=== PATIENT | male | born 1935 | race Caucasian/White ===

== ENCOUNTER → 2017-05-25 | Outpatient (CLI) | payer MEDICARE ==
--- NOTE | 2017-05-25 15:46 | US ---
EXAMINATION TYPE: US kidneys/renal and bladder DATE OF EXAM: 05/25/2017 COMPARISON: US CLINICAL HISTORY: M10.39 GOUT,N183 CHR KIDNEY DISEASE STAGE 3. EXAM MEASUREMENTS: Right Kidney: 9.1 x 4.9 x 5.9 cm Left Kidney: 9.8 x 5.8 x 5.3 cm Right Kidney: No hydronephrosis or masses seen Left Kidney: 1.6 x 1.6 x 1.6 cm anechoic focus with imperceptible wall and increased through transmis hafsa at the exophytic aspect of the left kidney Bladder: wnl Bilateral Jets seen: Yes There is no evidence for hydronephrosis at this point in time. No nephrolithiasis is seen. No paula s are identified. The urinary bladder is anechoic. Bilateral ureteral jets are seen. Cortical medullary differentiation is maintained. Cortical thinning is noted however. Cortical echote xture is somewhat increased. IMPRESSION: Findings compatible with medical renal disease. Simple cyst left kidney
== END | disposition home or self-care (01) ==
LOC: RADUSWWP 13:07
PROVIDERS: ATTEND Family Medicine
DX: N28.1 Cyst of kidney, acquired (principal); N18.3 Chronic kidney disease, stage 3 (moderate); M10.39 Gout due to renal impairment, multiple sites
CPT/HCPCS: 76770

== ENCOUNTER 2018-03-01 15:55 | Emergency (ER) | payer MEDICARE ==
--- NOTE | 2018-03-01 16:51 | ED ---
General Adult HPI - General Chief complaint: Chest Pain Stated complaint: chest tightness Time Seen by Provider: 03/01/18 16:17 Source: patient, family, RN notes reviewed, old records reviewed Mode of arrival: wheelchair Limitations: no limitations - History of Present Illness Initial comments: 82-year-old male presents for evaluation of chest pain. Patient had an episode of substernal chest tightness which began approximately 4 hours prior to arrival. This was nonexertional, he was eating his lunch. Denies sensation of food being caught in his throat. Denies dyspnea. Denies cough. Denies radiating pain. Patient has no known history of coronary artery disease but does have history of chronic kidney disease, and peripheral vascular disease. Denies cough. Denies fever. Denies chest pain at the time my evaluation. - Related Data Home Medications Medication Instructions Recorded Confirmed Allopurinol [Zyloprim] 100 mg PO DAILY 02/20/18 03/01/18 Atorvastatin Calcium [Lipitor] 40 mg PO DAILY 02/20/18 03/01/18 Calcitriol 0.25 mcg PO TID 02/20/18 03/01/18 Clopidogrel [Plavix] 75 mg PO DAILY 02/20/18 03/01/18 Colchicine 0.6 mg PO DAILY 02/20/18 03/01/18 Furosemide [Lasix] 20 mg PO DAILY 02/20/18 03/01/18 Lisinopril [Zestril] 10 mg PO BID 02/20/18 03/01/18 Vit A/Vit C/Vit E/Zinc/Copper 1 cap PO DAILY 02/20/18 03/01/18 [ICAPS SOFTGEL] Allergies Allergy/AdvReac Type Severity Reaction Status Date / Time Iodine and Iodide Containing AdvReac Nausea & Verified 03/01/18 16:27 Produc Vomiting shellfish derived [Shellfish] AdvReac Nausea & Verified 03/01/18 16:27 Vomiting Review of Systems ROS Statement: Those systems with pertinent positive or pertinent negative responses have been documented in the HPI. ROS Other: All systems not noted in ROS Statement are negative. Past Medical History Past Medical History: Hyperlipidemia, Hypertension Additional Past Medical History / Comment(s): "kidney problems", gout History of Any Multi-Drug Resistant Organisms: None Reported Past Surgical History: Tonsillectomy Past Psychological History: No Psychological Hx Reported Smoking Status: Former smoker Past Alcohol Use History: None Reported Past Drug Use History: None Reported General Exam Limitations: no limitations General appearance: alert, in no apparent distress Head exam: Present: atraumatic, normocephalic Eye exam: Present: normal appearance, PERRL ENT exam: Present: normal exam Neck exam: Present: normal inspection. Absent: tenderness, meningismus Respiratory exam: Present: normal lung sounds bilaterally. Absent: respiratory distress, wheezes Cardiovascular Exam: Present: regular rate, normal rhythm GI/Abdominal exam: Present: soft. Absent: distended, tenderness, guarding Extremities exam: Present: normal capillary refill, pedal edema Neurological exam: Present: alert, oriented X3, CN II-XII intact. Absent: motor sensory deficit Psychiatric exam: Present: normal affect, normal mood Skin exam: Present: warm, dry, intact. Absent: cyanosis, diaphoretic Course Vital Signs 03/01/18 16:03 Temperature 98.1 F Pulse Rate 74 Respiratory 24 Rate Blood Pressure 179/75 O2 Sat by Pulse 97 Oximetry - Reevaluation(s) Reevaluation #1: 03/01/18 18:22 Patient remains chest pain-free while in the emergency department. EKG Findings - EKG Comments: EKG Findings:: EKG: Normal sinus rhythm, rate of 67, VA interval 180, QRS duration 86, QTC 426, no ST segment changes. Medical Decision Making - Medical Decision Making 82-year-old male history of peripheral vascular disease presents for evaluation of chest pain. Pain resolved prior to arrival. Patient was substernal nonradiating. Workup in the emergency department reveals white blood cell count 3.7, hemoglobin is 10.5, creatinine 1.14 which is improved from previous. Troponin is negative. BNP is normal at 306. Chest x-ray shows no focal pneumonia, there is improved atelectasis. No pneumothorax. Patient remains chest pain-free while in the emergency department. He has significant risk factors will be kept in observation for serial cardiac enzymes, telemetry, and cardiology consultation. - Lab Data Result diagrams: 03/01/18 16:57 03/01/18 16:57 Lab Results 03/01/18 03/01/18 03/01/18 Range/Units 16:57 16:57 16:57 WBC 3.7 L (3.8-10.6) k/uL RBC 3.57 L (4.30-5.90) m/uL Hgb 10.5 L (13.0-17.5) gm/dL Hct 31.5 L (39.0-53.0) % MCV 88.1 (80.0-100.0) fL MCH 29.4 (25.0-35.0) pg MCHC 33.3 (31.0-37.0) g/dL RDW 14.5 (11.5-15.5) % Plt Count 144 L (150-450) k/uL Neutrophils % 58 % Lymphocytes % 27 % Monocytes % 7 % Eosinophils % 6 % Basophils % 1 % Neutrophils # 2.1 (1.3-7.7) k/uL Lymphocytes # 1.0 (1.0-4.8) k/uL Monocytes # 0.2 (0-1.0) k/uL Eosinophils # 0.2 (0-0.7) k/uL Basophils # 0.0 (0-0.2) k/uL PT (9.0-12.0) sec INR (<1.2) APTT (22.0-30.0) sec Sodium 141 (137-145) mmol/L Potassium 4.1 (3.5-5.1) mmol/L Chloride 112 H (98-107) mmol/L Carbon Dioxide 20 L (22-30) mmol/L Anion Gap 9 mmol/L BUN 30 H (9-20) mg/dL Creatinine 1.41 H (0.66-1.25) mg/dL Est GFR (CKD-EPI)AfAm 54 (>60 ml/min/1.73 sqM) Est GFR (CKD-EPI)NonAf 47 (>60 ml/min/1.73 sqM) Glucose 95 (74-99) mg/dL Calcium 8.5 (8.4-10.2) mg/dL Magnesium 1.5 L (1.6-2.3) mg/dL Total Bilirubin 0.4 (0.2-1.3) mg/dL AST 24 (17-59) U/L ALT 31 (21-72) U/L Alkaline Phosphatase 72 (38-126) U/L Total Creatine Kinase 124 (55-170) U/L CK-MB (CK-2) 3.6 H (0.0-2.4) ng/mL CK-MB (CK-2) Rel Index 2.9 Troponin I 0.013 (0.000-0.034) ng/mL NT-Pro-B Natriuret Pep pg/mL Total Protein 6.0 L (6.3-8.2) g/dL Albumin 3.5 (3.5-5.0) g/dL 03/01/18 03/01/18 Range/Units 16:57 16:57 WBC (3.8-10.6) k/uL RBC (4.30-5.90) m/uL Hgb (13.0-17.5) gm/dL Hct (39.0-53.0) % MCV (80.0-100.0) fL MCH (25.0-35.0) pg MCHC (31.0-37.0) g/dL RDW (11.5-15.5) % Plt Count (150-450) k/uL Neutrophils % % Lymphocytes % % Monocytes % % Eosinophils % % Basophils % % Neutrophils # (1.3-7.7) k/uL Lymphocytes # (1.0-4.8) k/uL Monocytes # (0-1.0) k/uL Eosinophils # (0-0.7) k/uL Basophils # (0-0.2) k/uL PT 10.3 (9.0-12.0) sec INR 1.1 (<1.2) APTT 25.2 (22.0-30.0) sec Sodium (137-145) mmol/L Potassium (3.5-5.1) mmol/L Chloride (98-107) mmol/L Carbon Dioxide (22-30) mmol/L Anion Gap mmol/L BUN (9-20) mg/dL Creatinine (0.66-1.25) mg/dL Est GFR (CKD-EPI)AfAm (>60 ml/min/1.73 sqM) Est GFR (CKD-EPI)NonAf (>60 ml/min/1.73 sqM) Glucose (74-99) mg/dL Calcium (8.4-10.2) mg/dL Magnesium (1.6-2.3) mg/dL Total Bilirubin (0.2-1.3) mg/dL AST (17-59) U/L ALT (21-72) U/L Alkaline Phosphatase (38-126) U/L Total Creatine Kinase (55-170) U/L CK-MB (CK-2) (0.0-2.4) ng/mL CK-MB (CK-2) Rel Index Troponin I (0.000-0.034) ng/mL NT-Pro-B Natriuret Pep 306 pg/mL Total Protein (6.3-8.2) g/dL Albumin (3.5-5.0) g/dL Disposition Clinical Impression: Chest pain Disposition: HOME SELF-CARE Condition: Good Instructions: Chest Pain (ED) Is patient prescribed a controlled substance at d/c from ED?: No Referrals: Flex Fernandez DO [Primary Care Provider] - 1-2 days Decision to Admit Reason: Admit from EC Decision Date: 03/01/18 Decision Time: 18:23
--- NOTE | 2018-03-01 17:16 | XR ---
EXAMINATION TYPE: XR chest 2V DATE OF EXAM: 03/01/2018 COMPARISON: Chest x-ray February 20, 2018. HISTORY: Chest pain. TECHNIQUE: Frontal and lateral views of the chest are obtained. FINDINGS: There is some residual linear opacity left lung base improved from prior. There is no new focal air space opacity, pleural effusion, or pneumothorax seen. The cardiac silhouette size is stab le and upper limits of normal with atherosclerotic thoracic aorta. The osseous structures are are s omewhat demineralized. IMPRESSION: Resolving left basilar atelectasis and/or infiltrate. No new infiltrate is seen.
[2018-03-01 17:19] LABS: Basophils % (A) 1 %; Eosinophils # (A) 0.2 k/uL (0-0.7); Eosinophils % (A) 6 %; HCT 31.5 % (39.0-53.0); HGB 10.5 gm/dL (13.0-17.5); Lymphocytes % (A) 27 %; MCH 29.4 pg (25.0-35.0); MCHC 33.3 g/dL (31.0-37.0); MCV 88.1 fL (80.0-100.0); Mean Platelet Volume 7.7; Monocytes # (A) 0.2 k/uL (0-1.0); Monocytes % (A) 7 %; Neutrophils # (A) 2.1 k/uL (1.3-7.7); Neutrophils % (A) 58 %; Platelet Count 144 k/uL (150-450); RBC 3.57 m/uL (4.30-5.90); RDW 14.5 % (11.5-15.5); WBC 3.7 k/uL (3.8-10.6)
[2018-03-01 17:30] LABS: INR 1.1 (<1.2); Partial Thromboplastin Time 25.2 sec (22.0-30.0); Prothrombin Time 10.3 sec (9.0-12.0)
[2018-03-01 17:31] LABS: Albumin 3.5 g/dL (3.5-5.0); Calcium 8.5 mg/dL (8.4-10.2); Magnesium 1.5 mg/dL (1.6-2.3); Potassium 4.1 mmol/L (3.5-5.1); Total Bilirubin 0.4 mg/dL (0.2-1.3)
[2018-03-01 17:47] LABS: Creatine Kinase MB 3.6 ng/mL (0.0-2.4); Troponin I 0.013 ng/mL (0.000-0.034)
[2018-03-01] MEDS ORDERED: ASPIRIN 325 MG TAB PO STA (18:19)
[2018-03-01] MEDS ORDERED: NALOXONE 0.4 MG/ML 1 ML VIAL IV PRN (18:20)
[2018-03-01 19:34] VITALS: BP 149/75; PULSE 77; RESP 18; TEMP 97.7
[2018-03-01] MEDS ORDERED: LISINOPRIL 10 MG TAB PO SCH (21:00)
[2018-03-02] MEDS ORDERED: FUROSEMIDE 20 MG TAB PO SCH (09:00)
[2018-03-02] MEDS ORDERED: COLCHICINE 0.6 MG EACH PO SCH (09:00)
[2018-03-02] MEDS ORDERED: CLOPIDOGREL 75 MG TAB PO SCH (09:00)
[2018-03-02] MEDS ORDERED: ALLOPURINOL 100 MG TAB PO SCH (09:00)
[2018-03-02] MEDS ORDERED: ATORVASTATIN 40 MG TAB PO SCH (09:00)
== END 2018-03-01 19:32 | disposition left against medical advice (07) ==
LOC: EC 15:55 → UNDOADMOB 18:20 → 1SOBS 18:20 → EC 19:32
DX: R07.89 Other chest pain (principal); J98.11 Atelectasis; I73.9 Peripheral vascular disease, unspecified; I12.9 Hypertensive chronic kidney disease with stage 1 through stage 4 chronic kidney disease, or unspecified chronic kidney disease; N18.9 Chronic kidney disease, unspecified; E78.5 Hyperlipidemia, unspecified; Z79.02 Long term (current) use of antithrombotics/antiplatelets; Z79.899 Other long term (current) drug therapy; Z91.048 Other nonmedicinal substance allergy status; Z91.013 Allergy to seafood; Z87.891 Personal history of nicotine dependence
CPT/HCPCS: 36415; 71046; 80053; 82550; 82553; 83735; 83880; 84484; 85025; 85610; 85730; 93005; 99285

== ENCOUNTER 2018-03-09 11:55 | Observation (INO) | payer MEDICARE ==
[2018-03-09] MEDS ORDERED: ASPIRIN 81 MG PO STA (12:14)
[2018-03-09] MEDS ORDERED: NITROGLYCERIN OINT 1 INCH/GM PACKET TOPICAL STA (12:15)
--- NOTE | 2018-03-09 12:18 | ED ---
General Adult HPI - General Chief complaint: Chest Pain Stated complaint: Chest Discomfort, SOB Time Seen by Provider: 03/09/18 12:00 Source: patient, family, RN notes reviewed Mode of arrival: wheelchair Limitations: no limitations - History of Present Illness Initial comments: This is an 82-year-old male with a past medical history significant for kidney problems peripheral edema and hypertension. Patient comes in the emergency department today the third time in the last couple of weeks he comes in today because he short of breath and having some chest pressure. Patient states onset was about an hour and a half ago. Patient denies any fever chills or cough. Patient states he has edema in his legs but that has not changed recently. Patient denies any palpitations. Patient denies any radiation of the chest pain. Patient denies any diaphoresis. Patient denies any abdominal pain patient denies nausea vomiting diarrhea. Patient states he doesn't know if the chest pain is related to exertion or not because he hasn't done anything. Patient denies lightheadedness dizziness or near syncopal episode. Patient denies headache patient denies numbness weakness. - Related Data Home Medications Medication Instructions Recorded Confirmed Allopurinol [Zyloprim] 100 mg PO DAILY 02/20/18 03/09/18 Atorvastatin Calcium [Lipitor] 40 mg PO DAILY 02/20/18 03/09/18 Calcitriol 0.25 mcg PO TID 02/20/18 03/09/18 Clopidogrel [Plavix] 75 mg PO DAILY 02/20/18 03/09/18 Colchicine 0.6 mg PO DAILY 02/20/18 03/09/18 Furosemide [Lasix] 20 mg PO DAILY 02/20/18 03/09/18 Lisinopril [Zestril] 10 mg PO BID 02/20/18 03/09/18 Aspirin 325 mg PO DAILY 03/09/18 03/09/18 Temazepam [Restoril] 30 mg PO HS PRN 03/09/18 03/09/18 Allergies Allergy/AdvReac Type Severity Reaction Status Date / Time Iodine and Iodide Containing AdvReac Nausea & Verified 03/09/18 13:31 Produc Vomiting shellfish derived [Shellfish] AdvReac Nausea & Verified 03/09/18 13:31 Vomiting Review of Systems ROS Statement: Those systems with pertinent positive or pertinent negative responses have been documented in the HPI. ROS Other: All systems not noted in ROS Statement are negative. Past Medical History Past Medical History: Hyperlipidemia, Hypertension Additional Past Medical History / Comment(s): "kidney problems", gout History of Any Multi-Drug Resistant Organisms: None Reported Past Surgical History: Tonsillectomy Past Psychological History: No Psychological Hx Reported Smoking Status: Former smoker Past Alcohol Use History: None Reported Past Drug Use History: None Reported General Exam - General Exam Comments Initial Comments: GENERAL: Patient is well-developed and well-nourished. Patient is nontoxic and well- hydrated and is in mild distress. ENT: Neck is soft and supple. No significant lymphadenopathy is noted. Oropharynx is clear. Moist mucous membranes. Neck has full range of motion without eliciting any pain. EYES: The sclera were anicteric and conjunctiva were pink and moist. Extraocular movements were intact and pupils were equal round and reactive to light. Eyelids were unremarkable. PULMONARY: Unlabored respirations. Good breath sounds bilaterally. No audible rales rhonchi or wheezing was noted. CARDIOVASCULAR: There is a regular rate and rhythm without any murmurs gallops or rubs. ABDOMEN: Soft and nontender with normal bowel sounds. No palpable organomegaly was noted. There is no palpable pulsatile mass. SKIN: Skin is clear with no lesions or rashes and otherwise unremarkable. NEUROLOGIC: Patient is alert and oriented x3. Cranial nerves II through XII are grossly intact. Motor and sensory are also intact. Normal speech, volume and content. Symmetrical smile. MUSCULOSKELETAL: Normal extremities with adequate strength and full range of motion. 2+ bilaterally LYMPHATICS: No significant lymphadenopathy is noted PSYCHIATRIC: Normal psychiatric evaluation. Normal interpersonal interactions appears functionally intact in deals appropriately with others. No signs of depression. No signs of anxiety. Limitations: no limitations Course Vital Signs 03/09/18 12:00 Temperature 97.9 F Pulse Rate 72 Respiratory 18 Rate Blood Pressure 134/68 O2 Sat by Pulse 96 Oximetry Medical Decision Making - Medical Decision Making EKG shows a normal sinus rhythm at 70 bpm UT interval is 184 QRS is 84 QT interval 414 QTC is 447. Patient's EKG shows no ST segment elevation or depression or T wave abnormalities are noted. Chest x-ray shows no acute abnormality. Patient's d-dimer was elevated but he could not get a CT of the chest wall PE so started on high-dose heparin ordered a VQ scan. I spoke with Dr. Whitehead he agreed to admit the patient admitted the patient. I continued high-dose heparin on the floor. - Lab Data Result diagrams: 03/09/18 12:32 03/09/18 12:32 Lab Results 03/09/18 03/09/18 03/09/18 Range/Units 12:32 12:32 12:32 WBC 3.3 L (3.8-10.6) k/uL RBC 3.62 L (4.30-5.90) m/uL Hgb 10.4 L (13.0-17.5) gm/dL Hct 31.8 L (39.0-53.0) % MCV 87.8 (80.0-100.0) fL MCH 28.8 (25.0-35.0) pg MCHC 32.9 (31.0-37.0) g/dL RDW 14.6 (11.5-15.5) % Plt Count 154 (150-450) k/uL Neutrophils % 66 % Lymphocytes % 21 % Monocytes % 7 % Eosinophils % 4 % Basophils % 1 % Neutrophils # 2.2 (1.3-7.7) k/uL Lymphocytes # 0.7 L (1.0-4.8) k/uL Monocytes # 0.2 (0-1.0) k/uL Eosinophils # 0.1 (0-0.7) k/uL Basophils # 0.0 (0-0.2) k/uL PT (9.0-12.0) sec INR (<1.2) APTT (22.0-30.0) sec D-Dimer (<0.60) mg/L FEU Sodium 142 (137-145) mmol/L Potassium 4.0 (3.5-5.1) mmol/L Chloride 108 H (98-107) mmol/L Carbon Dioxide 24 (22-30) mmol/L Anion Gap 10 mmol/L BUN 43 H (9-20) mg/dL Creatinine 1.75 H (0.66-1.25) mg/dL Est GFR (CKD-EPI)AfAm 42 (>60 ml/min/1.73 sqM) Est GFR (CKD-EPI)NonAf 36 (>60 ml/min/1.73 sqM) Glucose 105 H (74-99) mg/dL Calcium 8.2 L (8.4-10.2) mg/dL Magnesium 1.4 L (1.6-2.3) mg/dL Total Bilirubin 0.4 (0.2-1.3) mg/dL AST 22 (17-59) U/L ALT 25 (21-72) U/L Alkaline Phosphatase 64 (38-126) U/L Total Creatine Kinase 91 (55-170) U/L CK-MB (CK-2) 2.5 H (0.0-2.4) ng/mL CK-MB (CK-2) Rel Index 2.7 Troponin I <0.012 (0.000-0.034) ng/mL NT-Pro-B Natriuret Pep pg/mL Total Protein 5.8 L (6.3-8.2) g/dL Albumin 3.4 L (3.5-5.0) g/dL 03/09/18 03/09/18 Range/Units 12:32 12:32 WBC (3.8-10.6) k/uL RBC (4.30-5.90) m/uL Hgb (13.0-17.5) gm/dL Hct (39.0-53.0) % MCV (80.0-100.0) fL MCH (25.0-35.0) pg MCHC (31.0-37.0) g/dL RDW (11.5-15.5) % Plt Count (150-450) k/uL Neutrophils % % Lymphocytes % % Monocytes % % Eosinophils % % Basophils % % Neutrophils # (1.3-7.7) k/uL Lymphocytes # (1.0-4.8) k/uL Monocytes # (0-1.0) k/uL Eosinophils # (0-0.7) k/uL Basophils # (0-0.2) k/uL PT 10.4 (9.0-12.0) sec INR 1.1 (<1.2) APTT 24.9 (22.0-30.0) sec D-Dimer 3.78 H (<0.60) mg/L FEU Sodium (137-145) mmol/L Potassium (3.5-5.1) mmol/L Chloride (98-107) mmol/L Carbon Dioxide (22-30) mmol/L Anion Gap mmol/L BUN (9-20) mg/dL Creatinine (0.66-1.25) mg/dL Est GFR (CKD-EPI)AfAm (>60 ml/min/1.73 sqM) Est GFR (CKD-EPI)NonAf (>60 ml/min/1.73 sqM) Glucose (74-99) mg/dL Calcium (8.4-10.2) mg/dL Magnesium (1.6-2.3) mg/dL Total Bilirubin (0.2-1.3) mg/dL AST (17-59) U/L ALT (21-72) U/L Alkaline Phosphatase (38-126) U/L Total Creatine Kinase (55-170) U/L CK-MB (CK-2) (0.0-2.4) ng/mL CK-MB (CK-2) Rel Index Troponin I (0.000-0.034) ng/mL NT-Pro-B Natriuret Pep 86 pg/mL Total Protein (6.3-8.2) g/dL Albumin (3.5-5.0) g/dL Critical Care Time Critical Care Time: Yes Total Critical Care Time: 35 Disposition Clinical Impression: Elevated d-dimer, Unstable angina pectoris Disposition: ADMITTED IP TO THIS HOSP Referrals: Flex Fernandez DO [Primary Care Provider] - 1-2 days Time of Disposition: 13:45
[2018-03-09 12:55] LABS: Basophils % (A) 1 %; Eosinophils # (A) 0.1 k/uL (0-0.7); Eosinophils % (A) 4 %; HCT 31.8 % (39.0-53.0); HGB 10.4 gm/dL (13.0-17.5); Lymphocytes # (A) 0.7 k/uL (1.0-4.8); Lymphocytes % (A) 21 %; MCH 28.8 pg (25.0-35.0); MCHC 32.9 g/dL (31.0-37.0); MCV 87.8 fL (80.0-100.0); Mean Platelet Volume 7.8; Monocytes # (A) 0.2 k/uL (0-1.0); Monocytes % (A) 7 %; Neutrophils # (A) 2.2 k/uL (1.3-7.7); Neutrophils % (A) 66 %; Platelet Count 154 k/uL (150-450); RBC 3.62 m/uL (4.30-5.90); RDW 14.6 % (11.5-15.5); WBC 3.3 k/uL (3.8-10.6)
--- NOTE | 2018-03-09 13:01 | XR ---
EXAMINATION TYPE: XR chest 2V DATE OF EXAM: 03/09/2018 COMPARISON: 03/01/2018 HISTORY: Chest pain TECHNIQUE: Frontal and lateral views of the chest are obtained. FINDINGS: There is no focal air space opacity, pleural effusion, or pneumothorax seen. The cardiac silhouette size is within normal limits. Mid thoracic compression deformity is unchanged from the tosin or of 03/01/2018 and is mild. Flattening of the hemidiaphragms in the lateral view suggests underlyin g COPD. Minimal bibasilar subsegmental atelectasis is seen. IMPRESSION: Minimal bibasilar subsegmental atelectasis and flattening of the diaphragms on the later al image suggesting underlying COPD.
[2018-03-09 13:09] LABS: INR 1.1 (<1.2); Partial Thromboplastin Time 24.9 sec (22.0-30.0); Prothrombin Time 10.4 sec (9.0-12.0)
[2018-03-09 13:13] LABS: Albumin 3.4 g/dL (3.5-5.0); Calcium 8.2 mg/dL (8.4-10.2); Magnesium 1.4 mg/dL (1.6-2.3); Total Bilirubin 0.4 mg/dL (0.2-1.3); Total Protein 5.8 g/dL (6.3-8.2)
[2018-03-09 13:18] LABS: Creatine Kinase 91 U/L (55-170)
[2018-03-09 13:25] LABS: D-Dimer 3.78 mg/L FEU (<0.60)
[2018-03-09] MEDS ORDERED: HEPARIN SODIUM,PORCINE 10,000 UNIT/ML 1 ML VIAL IV ONE (13:27)
[2018-03-09 13:31] LABS: Creatine Kinase MB 2.5 ng/mL (0.0-2.4); Troponin I <0.012 ng/mL (0.000-0.034)
[2018-03-09] MEDS ORDERED: NITROGLYCERIN SL TABS 0.4 MG TAB SUBLINGUAL PRN (13:46)
[2018-03-09] MEDS: HEPARIN SOD,PORK IN 0.45% NACL 25,000 UNIT in 0.45% NACL 1 500ML.BAG IV SCH (14:19)
[2018-03-09] MEDS ORDERED: IPRATROPIUM-ALBUTEROL 3 ML NEB INHALATION PRN (17:16)
[2018-03-09 18:18] VITALS: BMI 28.0
[2018-03-09 19:14] LABS: Creatine Kinase 96 U/L (55-170)
[2018-03-09 19:27] LABS: Creatine Kinase MB 2.5 ng/mL (0.0-2.4); Troponin I <0.012 ng/mL (0.000-0.034)
[2018-03-09] MEDS: NITROGLYCERIN OINT 1 INCH/GM PACKET TOPICAL SCH ×2 (19:45→23:06)
[2018-03-09] MEDS: FUROSEMIDE 20 MG TAB PO SCH (19:47)
[2018-03-09] MEDS: SODIUM CHLORIDE 0.9% 1,000 ML IV SCH (19:48)
[2018-03-09] MEDS: IPRATROPIUM-ALBUTEROL 3 ML NEB INHALATION SCH ×2 (20:48→20:49)
--- NOTE | 2018-03-09 20:54 | HP ---
HISTORY AND PHYSICAL DATE OF SERVICE: 03/09/2018 CHIEF COMPLAINT: Shortness of breath. HISTORY OF PRESENT ILLNESS: This 82-year-old gentleman with a past medical history of multiple medical problems including hypertension, hyperlipidemia, history of kidney problems, history of gout, history of tonsillectomy, being followed by Dr. Fernandez in the outpatient setting, was complaining of shortness of breath. The patient apparently had 2 or 3 ER visits recently because of similar symptoms. The patient also had kidney problems and was sent to see a oil expeller operator at this time. The patient also had chest pressure also. The patient also complains of peripheral edema. The patient came to [facility] and was admitted for further evaluation and treatment. Creatinine is 1.75. D- dimer was elevated at 3.78. There is no history of fever, rigors. No history of headache, loss of consciousness, seizures at this time. PAST MEDICAL HISTORY: History of hypertension, hyperlipidemia, history of renal kidney stones, history of gout. MEDICATIONS: Home medications are: 1. Restoril 30 mg q.h.s. p.r.n. 2. Aspirin 320 mg daily. 3. Zestril 10 mg b.i.d. 4. Lasix 20 mg daily. 5. Colchicine 0.6 p.o. daily. 6. Plavix 75 mg p.o. daily. 7. Calcitriol 0.5 mcg p.o. t.i.d. 8. Lipitor 40 mg p.o. daily. 9. Seroquel 100 mg p.o. daily. ALLERGIES: IODINE AND SHELLFISH. FAMILY HISTORY: No history of heart disease or strokes in the family. SOCIAL HISTORY: Previous history of smoking. No history of current smoking, alcohol intake. REVIEW OF SYSTEMS: ENT: Diminished vision. Diminished hearing. Cardiovascular: As mentioned earlier. RESPIRATORY: As mentioned earlier. GI: No nausea or vomiting. no dysuria. CENTRAL NERVOUS SYSTEM: No numbness or weakness. ALLERGY/IMMUNOLOGY: No asthma or hayfever. MUSCULOSKELETAL: As mentioned earlier. HEMATOLOGY/ONCOLOGY: No history of anemia. ENDOCRINE: No history of diabetes or hypothyroidism. CONSTITUTIONAL: as mentioned earlier. DERMATOLOGY: Negative. Rheumatology: Gout. PSYCHIATRIC: As mentioned earlier. JOINTS: As mentioned earlier. PHYSICAL EXAMINATION: Alert and oriented x3. Pulse 58, blood pressure 140/78. Respiration 18, temperature 97.8. Pulse ox 100 percent on 2 L. HEENT: Conjunctivae normal. Oral mucosa moist. Neck is no jugular venous distention. No carotid bruit. No lymph node enlargement. Cardiovascular systems: S1, S2 muffled. Respiration: Breath sounds diminished in the bases. Scattered rhonchi. No crackles. ABDOMEN: Soft, nontender. No mass palpable. Legs: No edema. No swelling. Nervous system: Higher functions as mentioned earlier. Cranial nerves: 2 thru 12 grossly intact. Moves all 4 limbs. No focal motor or sensory deficits. Lymphatics: No lymph nodes palpable in the neck, axillae or groin. JOINTS: No active arthropathy. Skin: No ulcer, rash, bleeding. LAB: WBC 3.3, hemoglobin 10.4. D-dimer is 3.78. Creatinine is 1.75. ASSESSMENT: 1. Chest pain for evaluation, possible unstable angina. 2. Shortness of breath, rule out pulmonary embolism, possible chronic obstructive pulmonary disease exacerbation. 3. Leukopenia. 4. Anemia, normocytic anemia of chronic disease. 5. Elevated D-dimer. 6. Increased creatinine with chronic kidney disease stage III. 7. Hypomagnesemia. 8. History of hypertension. 9. History of hyperlipidemia. 10.History of nephrolithiasis. 11.History of gout. 12.Remote history of nicotine dependence. 13.FULL CODE. RECOMMENDATIONS AND DISCUSSION: In this 82-year-old gentleman who presented with multiple complex medical issues, we will monitor the patient closely. Continue the current medications, management and symptomatic treatment. We will initiate the patient on heparin. I would also recommend a V/Q scan. Symptomatic treatment. Cardiology, pulmonology consultation. Treat the patient empirically with bronchodilators and await the response. Will need further workup as an outpatient. The overall prognosis is extremely guarded because of multiple complex medical issues and discussed at length with the patient and the daughter at the bedside. Further recommendations to follow. A copy of dictation behind forwarded to Dr. Fernandez's who is the primary care physician. As mentioned earlier, D-dimer is elevated. I would also recommend a 2D echo with Doppler. MMODL / IJN: [id number] /
[2018-03-09] MEDS ORDERED: TEMAZEPAM 30 MG CAP PO PRN (21:00)
[2018-03-09] MEDS: LISINOPRIL 10 MG TAB PO SCH (21:24)
[2018-03-09 21:29] VITALS: RESP 17
[2018-03-09 21:48] LABS: Appearance,Urine Clear (Clear); Bilirubin,Urine Negative (Negative); Blood,Urine Negative (Negative); Color,Urine Light Yellow; Glucose,Urine (UA) Negative (Negative); Ketones,Urine Negative (Negative); Leukocyte Esterase,Urine Negative (Negative); Nitrite,Urine Negative (Negative); Protein,Urine Negative (Negative); Specific Gravity,Urine 1.009 (1.001-1.035); Urobilinogen,Urine <2.0 mg/dL (<2.0)
[2018-03-10 01:28] LABS: Creatine Kinase MB 2.2 ng/mL (0.0-2.4)
[2018-03-10 01:32] LABS: Troponin I 0.012 ng/mL (0.000-0.034)
[2018-03-10 03:23] VITALS: TEMP 97.9
[2018-03-10 03:44] LABS: Calcium 8.3 mg/dL (8.4-10.2); Potassium 3.6 mmol/L (3.5-5.1)
[2018-03-10 03:57] LABS: Basophils % (A) 0 %; Eosinophils # (A) 0.2 k/uL (0-0.7); Eosinophils % (A) 5 %; HCT 30.1 % (39.0-53.0); HGB 9.8 gm/dL (13.0-17.5); Lymphocytes % (A) 32 %; MCH 28.5 pg (25.0-35.0); MCHC 32.6 g/dL (31.0-37.0); MCV 87.5 fL (80.0-100.0); Mean Platelet Volume 7.5; Monocytes # (A) 0.2 k/uL (0-1.0); Monocytes % (A) 7 %; Neutrophils # (A) 1.6 k/uL (1.3-7.7); Neutrophils % (A) 54 %; Platelet Count 133 k/uL (150-450); RBC 3.44 m/uL (4.30-5.90); RDW 14.6 % (11.5-15.5)
[2018-03-10] MEDS: HEPARIN SOD,PORK IN 0.45% NACL 25,000 UNIT in 0.45% NACL 1 500ML.BAG IV SCH ×2 (06:37→10:35)
[2018-03-10] MEDS: NITROGLYCERIN OINT 1 INCH/GM PACKET TOPICAL SCH ×2 (06:38→12:41)
[2018-03-10] MEDS ORDERED: Magnesium Replacement Protocol 1 EACH MISC MISCELLANE PRN (06:39)
[2018-03-10] MEDS: IPRATROPIUM-ALBUTEROL 3 ML NEB INHALATION SCH ×2 (08:10→11:52)
--- NOTE | 2018-03-10 08:54 | P.CRDCN ---
History of Present Illness Consult date: 03/10/18 Requesting physician: Julian Whitehead Consult reason: shortness of breath Chief complaint: Shortness of breath, chest discomfort History of present illness: This is an 82-year-old gentleman with history of hypertension, hyperlipidemia, kidney problems, prior history of smoking, gout, who had 3 recent visits to the emergency room. On this occasion he again presents with symptoms of shortness of breath. According to the patient he states that the symptoms come on when he exerts himself, even carrying light loads into the house he gets short of breath. He also states that he gets a discomfort in his epigastric region which goes up into his chest. Once he sits down and rests for a while the symptoms do seem to subside. He does have some mild bilateral peripheral edema in his lower extremities. Patient states that all of this has come on within the past 3 weeks or so. His chest x-ray on admission showed minimal basilar subsegmental atelectasis and flattening of the diaphragm suggesting underlying COPD. EKG on arrival here shows a normal sinus rhythm with no acute changes noted. The pressure on arrival here 134/68 with a heart rate in the 70s, 96% on room air, temperature 97.9. White blood cell count 3.0 , hemoglobin 10.4 on admission, 9.8 this morning. Platelet count 133. D-dimer 3.78. On admission sodium 142, potassium 4.0, BUN 43, creatinine 1.7. Calcium 8.2, magnesium 1.4. Troponins negative 3. This morning's lap BUN is 38 and creatinine 1.5, magnesium 1.5. Total protein 5.8, albumin 3.4. Cholesterol 123 , LDL 73, triglycerides 49 and HDL 40 urinalysis was negative. Upon review of records back to 2013, it does appear that the patient runs a low white blood cell count. Hemoglobin in 2014 11.7. Creatinine has been as high as 2.3 over the past few years. At the time of my examination this morning, patient feels well, denies any shortness of breath and is not having any discomfort. Past Medical History Past Medical History: Hyperlipidemia, Hypertension Additional Past Medical History / Comment(s): "kidney problems", gout History of Any Multi-Drug Resistant Organisms: None Reported Past Surgical History: Tonsillectomy Past Anesthesia/Blood Transfusion Reactions: No Reported Reaction Past Psychological History: No Psychological Hx Reported Smoking Status: Former smoker Past Alcohol Use History: None Reported Past Drug Use History: None Reported Medications and Allergies Home Medications Medication Instructions Recorded Confirmed Type Allopurinol [Zyloprim] 100 mg PO DAILY 02/20/18 03/09/18 History Atorvastatin Calcium [Lipitor] 40 mg PO DAILY 02/20/18 03/09/18 History Calcitriol 0.25 mcg PO MOWEFR 02/20/18 03/09/18 History Clopidogrel [Plavix] 75 mg PO DAILY 02/20/18 03/09/18 History Colchicine 0.6 mg PO DAILY 02/20/18 03/09/18 History Furosemide [Lasix] 20 mg PO DAILY 02/20/18 03/09/18 History Lisinopril [Zestril] 10 mg PO BID 02/20/18 03/09/18 History Aspirin 325 mg PO DAILY 03/09/18 03/09/18 History Temazepam [Restoril] 30 mg PO HS PRN 03/09/18 03/09/18 History Allergies Allergy/AdvReac Type Severity Reaction Status Date / Time Iodine and Iodide Containing AdvReac Nausea & Verified 03/09/18 13:31 Produc Vomiting shellfish derived [Shellfish] AdvReac Nausea & Verified 03/09/18 13:31 Vomiting Physical Exam Vitals: Vital Signs Temp Pulse Pulse Resp BP BP Pulse Ox 03/10/18 03:25 70 17 03/10/18 03:22 97.9 F 70 17 102/55 93 L 03/09/18 23:09 75 17 03/09/18 23:06 75 17 101/55 95 03/09/18 20:57 86 03/09/18 20:51 86 03/09/18 20:00 98 F 65 17 128/63 95 03/09/18 16:00 97.9 F 86 16 180/86 98 03/09/18 15:59 97.8 F 58 L 18 146/78 100 03/09/18 14:20 61 18 146/88 99 03/09/18 12:00 97.9 F 72 18 134/68 96 Intake and Output 03/09/18 03/10/18 03/10/18 22:59 06:59 14:59 Intake Total 165.727 1430.168 Output Total 750 1000 Balance -376.805 15.168 Intake: IV 220 ns 220 Intake, IV Titration 173.195 195.168 Amount Heparin Sod,Pork in 0.45% 173.195 195.168 NaCl 25,000 unit In 0.45 % NaCl 1 500ml.bag @ 18 UNITS/KG/HR 31.02 mls/hr IV .Q16H8M [facility] Rx#: [id number] Oral 200 600 Output: Urine 750 1000 Other: Voiding Method Urinal Urinal Weight 86.183 kg 81.2 kg PHYSICAL EXAMINATION: GENERAL: 82-year-old gentleman in no acute distress at the time of my examination HEENT: Head is atraumatic, normocephalic. Pupils equal, round. Sclera anicteric. Conjunctiva are clear. Mucous membranes of the mouth are moist. Neck is supple. There is no elevated jugular venous pressure. No carotid bruit is heard. HEART EXAMINATION: Heart S1 and S2 systolic murmur is heard in the aortic valve area. CHEST EXAMINATION: Lungs are clear to auscultation and precussion. No chest wall tenderness is noted on palpation or with deep breathing. ABDOMEN: Soft, nontender. Bowel sounds are heard. No organomegaly noted. EXTREMITIES: 2+ peripheral pulses with trace evidence of peripheral edema and no calf tenderness noted. NEUROLOGIC patient is awake, alert and oriented 3 . . Results 03/10/18 03:03 03/10/18 03:03 Cardiac Enzymes 03/09/18 03/09/18 03/09/18 Range/Units 12:32 12:32 18:40 AST 22 (17-59) U/L CK-MB (CK-2) 2.5 H 2.5 H (0.0-2.4) ng/mL Troponin I <0.012 <0.012 (0.000-0.034) ng/mL 03/10/18 Range/Units 00:30 AST (17-59) U/L CK-MB (CK-2) 2.2 (0.0-2.4) ng/mL Troponin I 0.012 (0.000-0.034) ng/mL Coagulation 03/09/18 03/09/18 03/10/18 Range/Units 12:32 18:40 03:03 PT 10.4 (9.0-12.0) sec APTT 24.9 >200.0 H* 161.0 H* (22.0-30.0) sec Lipids 03/10/18 Range/Units 03:03 Triglycerides 49 (<150) mg/dL Cholesterol 123 (<200) mg/dL HDL Cholesterol 40 (40-60) mg/dL CBC 03/09/18 03/10/18 Range/Units 12:32 03:03 WBC 3.3 L 3.0 L (3.8-10.6) k/uL RBC 3.62 L 3.44 L (4.30-5.90) m/uL Hgb 10.4 L 9.8 L (13.0-17.5) gm/dL Hct 31.8 L 30.1 L (39.0-53.0) % Plt Count 154 133 L (150-450) k/uL Comprehensive Metabolic Panel 03/09/18 03/10/18 Range/Units 12:32 03:03 Sodium 142 141 (137-145) mmol/L Potassium 4.0 3.6 (3.5-5.1) mmol/L Chloride 108 H 109 H (98-107) mmol/L Carbon Dioxide 24 23 (22-30) mmol/L BUN 43 H 38 H (9-20) mg/dL Creatinine 1.75 H 1.59 H (0.66-1.25) mg/dL Glucose 105 H 95 (74-99) mg/dL Calcium 8.2 L 8.3 L (8.4-10.2) mg/dL AST 22 (17-59) U/L ALT 25 (21-72) U/L Alkaline Phosphatase 64 (38-126) U/L Total Protein 5.8 L (6.3-8.2) g/dL Albumin 3.4 L (3.5-5.0) g/dL Current Medications Generic Name Dose Route Start Last Admin Trade Name Freq PRN Reason Stop Dose Admin Albuterol/Ipratropium 3 ml 03/09/18 20:00 03/10/18 08:10 Duoneb 0.5 Mg-3 Mg/3 Ml Soln INHALATION Not Given RT-TID JUAN Albuterol/Ipratropium 3 ml 03/09/18 17:16 Duoneb 0.5 Mg-3 Mg/3 Ml Soln INHALATION RT-TID PRN Shortness Of Breath Or Wheezing Allopurinol 100 mg 03/10/18 09:00 Zyloprim PO DAILY [facility] Aspirin 325 mg 03/10/18 09:00 Aspirin PO DAILY [facility] Atorvastatin Calcium 40 mg 03/10/18 09:00 Lipitor PO DAILY [facility] Calcitriol 0.25 mcg 03/11/18 09:00 Rocaltrol PO MoWeFr [facility] Clopidogrel Bisulfate 75 mg 03/10/18 09:00 Plavix PO DAILY [facility] Colchicine 0.6 mg 03/10/18 09:00 Colcrys PO DAILY [facility] Furosemide 20 mg 03/09/18 17:30 03/09/18 19:47 Lasix PO 20 mg DAILY JUAN Administration Heparin Sodium/Sodium Chloride 500 mls @ 31.02 mls/hr 03/09/18 13:30 06:37 25,000 unit/ Sodium Chloride IV Not Given .Q16H8M [facility] Protocol 18 UNITS/KG/HR Sodium Chloride 1,000 mls @ 50 mls/hr 03/09/18 17:30 03/09/18 19:48 Saline 0.9% IV 50 mls/hr .Q20H JUAN Administration Magnesium Sulfate/Dextrose 1 100 mls @ 100 mls/hr 03/10/18 07:00 gm/ IV Solution IVPB 03/10/18 08:59 Q1H [facility] Lisinopril 10 mg 03/09/18 21:00 03/09/18 21:24 Zestril PO 10 mg BID UJAN Administration Miscellaneous Information 1 each 03/10/18 06:39 Magnesium Per Protocol MISCELLANE DAILY PRN Per Protocol Protocol Nitroglycerin 1 inch 03/09/18 18:00 03/10/18 06:38 Nitro-Bid Oint TOPICAL Not Given Q6HR [facility] Nitroglycerin 0.4 mg 03/09/18 13:46 Nitrostat SUBLINGUAL Q5M PRN Chest Pain Temazepam 30 mg 03/09/18 21:00 03/09/18 21:24 Restoril PO 30 mg HS PRN Administration Insomnia Intake and Output 03/09/18 03/10/18 03/10/18 22:59 06:59 14:59 Intake Total 955.126 0840.168 Output Total 750 1000 Balance -376.805 15.168 Intake: IV 220 ns 220 Intake, IV Titration 173.195 195.168 Amount Heparin Sod,Pork in 0.45% 173.195 195.168 NaCl 25,000 unit In 0.45 % NaCl 1 500ml.bag @ 18 UNITS/KG/HR 31.02 mls/hr IV .Q16H8M [facility] Rx#: [id number] Oral 200 600 Output: Urine 750 1000 Other: Voiding Method Urinal Urinal Weight 86.183 kg 81.2 kg 03/10/18 03:03 03/10/18 03:03 EKG Interpretations (text) EKG shows normal sinus rhythm with no acute changes. Assessment and Plan Plan: Assessment and plan #1 symptoms of exertional shortness of breath with intermittent epigastric and chest discomfort. Troponins are negative 3. EKG shows normal sinus rhythm with no acute changes. D-dimer was elevated, hence a lung perfusion scan was performed this morning which is yet pending. #2 hypertension #3 hyperlipidemia #4 acute on chronic kidney disease #5 gout #6 prior history of smoking #7 hypomagnesemia, being replaced with protocol #8 prior CVA Plan We'll request an echocardiogram with Doppler study be performed. Await results of VQ scan. Replace magnesium. Further recommendations will be based on these findings and patient's clinical course. DNP note has been reviewed, I agree with a documented findings and plan of care. Patient was seen and examined.
[2018-03-10] MEDS ORDERED: ATORVASTATIN 40 MG TAB PO SCH (09:00)
[2018-03-10] MEDS ORDERED: ALLOPURINOL 100 MG TAB PO SCH (09:00)
[2018-03-10] MEDS ORDERED: CLOPIDOGREL 75 MG TAB PO SCH (09:00)
[2018-03-10] MEDS ORDERED: ASPIRIN 325 MG TAB PO SCH (09:00)
[2018-03-10] MEDS ORDERED: COLCHICINE 0.6 MG EACH PO SCH (09:00)
--- NOTE | 2018-03-10 09:19 | NM ---
EXAMINATION TYPE: NM pul vent and perfuse DATE OF EXAM: 03/10/2018 COMPARISON: NONE HISTORY: Shortness of breath TECHNIQUE: Utilizing inhalation of 31.0 mCi Tc 99m DTPA aerosol and intravenous injection of 4.66 mC i of Tc 99m MAA, ventilation and perfusion images are acquired post injection in multiple projections . FINDINGS: Normal radiotracer distribution is noted in the lungs. There is no evidence of mismatched defects. IMPRESSION: Very low probability for pulmonary embolism.
[2018-03-10] MEDS: MAGNESIUM SULFATE-D5W PMX 1 GM in DEXTROSE/WATER 1 100ML.BAG IVPB SCH ×2 (10:34→11:00)
[2018-03-10] MEDS: FUROSEMIDE 20 MG TAB PO SCH (10:35)
[2018-03-10] MEDS: LISINOPRIL 10 MG TAB PO SCH (10:35)
[2018-03-10] MEDS: SODIUM CHLORIDE 0.9% 1,000 ML IV SCH (12:41)
[2018-03-10 14:52] VITALS: BP 167/75; PULSE 69
--- NOTE | 2018-03-10 20:52 | CONS ---
CONSULTATION DATE OF CONSULTATION: 03/10/2018 This is an 82-year-old male who apparently presented to the emergency room on March 09. He came with complaints of a knot in his chest. He is very adamant that it was not pain in the chest but rather a knot in his chest. I have mentioned pain a couple times any correct me very quickly. The patient states that he has been having this on and off for some time. He has had this maybe 3 times in the last couple weeks. The patient denies any shortness of breath to me. Denies any fever or chills. Denies any cough or phlegm production. There is no radiation of this sensation that he is having. Denies any palpitations or fluttering of the heart. Also denies any abdominal complaints including nausea, vomiting or diarrhea. The patient was evaluated in the emergency room and admitted with the idea that this could be cardiac in nature. The patient is not having a problem currently. States he is feeling back to normal. He states he would like to go home because he has too small puppies at home that he would like to take care of. He says he is going to sign out against medical advice if they do not discharge him from the hospital. Again, he is not having any issues at this time. I asked him specifically about shortness of breath and he denies it. The patient had a chest x-ray which suggests the possibility of underlying COPD. He also had a lung scan to rule out PE. It was done because his renal function was abnormal and it was very low probability. I do not suspect that he has had a pulmonary embolism based on his story or his lung scan. HOME MEDICATIONS: Include allopurinol, atorvastatin, calcitriol, Plavix, colchicine, Lasix, Zestril, aspirin, and Restoril. MEDICAL HISTORY: Hypertension, hyperlipidemia, gout and chronic kidney disease. SURGICAL HISTORY: Includes among other things a tonsillectomy. SOCIAL HISTORY: Positive for previous tobacco use. I asked him about trying to quantify his tobacco use, but he is really nonspecific in terms of how much he smoked and for how long. He did quit smoking maybe 10 years ago. He denies any alcohol or illicit drug use. FAMILY HISTORY: Noncontributory. REVIEW OF SYSTEMS: CONSTITUTIONAL: Negative. NEUROLOGIC: Negative. HEENT: Negative. CARDIOVASCULAR: Chest sensation which he describes as a knot in his chest, not pain. PULMONARY: Negative. GI/: Negative. RHEUMATOLOGIC/IMMUNOLOGIC: Negative. ENDOCRINOLOGIC/DERMATOLOGIC: Negative. Current vital signs are reviewed. Temperature 97.9, heart rate 67, respiratory 17, blood pressure 166/70, mean 102, room air saturation 97%. The patient looks very stable. HEENT: Examination is grossly unremarkable. Mucous membranes are moist. No oral lesions. Not requiring any supplemental oxygen. NECK: Supple. Full range of motion. No adenopathy or thyromegaly. Neck veins are flat. CARDIOVASCULAR: Examination reveals regular rhythm and rate. S1, S2 normal. No S3, S4, or murmur. LUNGS: Clear breath sounds. There is no wheezes, rhonchi, or crackles. Breath sounds are equal bilaterally. ABDOMEN: Soft, bowel sounds are heard. Extremities are intact. There is no cyanosis, clubbing, or edema. Skin without rash. Neurologic examination is brief but nonfocal. LAB DATA: Reviewed. White count 3, hemoglobin 9.8, hematocrit 30.1, platelet count 133,000. Sodium, potassium normal. Chloride 109, CO2 is 23, anion gap is normal. BUN and creatinine were 38 and 1.59. Cardiac enzymes were negative x2. Cholesterol was 123. UA was negative. Chest x-ray shows a possible underlying COPD. Lung scan was very low probability for pulmonary embolism. Cardiology also saw the patient and they were recommending an echocardiogram with Doppler study. ASSESSMENT: 1. Chest discomfort/knot as the patient describes it, not currently present, currently being evaluated by Cardiology. 2. Doubt pulmonary embolism based on the patient's history and the very low probability V/Q scan. 3. Possible underlying COPD from previous tobacco use. 4. History of hypertension. 5. History of hyperlipidemia. 6. History of kidney stones. 7. Chronic kidney disease. 8. History of gout. PLAN: The patient seems to be doing relatively well. He is adamant about being discharged today. He states that if they do not discharge him, he will sign out against medical advice. To me, what the patient is describing based on his history is that of esophageal spasm. It seems to occur a lot of times when he eats. Most recently he had a sub and he states that it seemed to occur then. It may be that he is eating his sub too quickly, he is not chewing his food properly or he taking to big a bite. It does seem to occur many times when he is eating or after he eats. Anyway, esophageal spasm may be the explanation for all of this. The patient, from the pulmonary standpoint is stable. He could be discharged. Additional recommendations and suggestions are forthcoming. I did offer my services to evaluate his lungs. He does have a history of tobacco use. He may have some underlying COPD. He will give it some thought. In the office, he would benefit from a complete pulmonary function test. He may or may not come back to see me. MMAKUAL / IJN: [id number] /
--- NOTE | 2018-03-10 22:40 | DS ---
DISCHARGE SUMMARY DATE OF SERVICE: 03/10/2018 FINAL DIAGNOSES: 1. Chest pain. Myocardial infarction ruled out. 2. Shortness of breath. Pulmonary ruled out possible bronchitis or chronic obstructive pulmonary disease. 3. Leukopenia. 4. Anemia, normocytic anemia of chronic disease. 5. Elevated D-dimer. 6. Increased creatinine with chronic kidney stage 3. 7. Hypomagnesemia. 8. Hypertension. 9. Hyperlipidemia. 10.History of nephrolithiasis. 11.History of gout. 12.Remote history of nicotine dependence. 13.FULL CODE. DISCHARGE DISPOSITION: The patient is being discharged in stable condition with guarded prognosis. Patient is extremely keen on going home. The patient will be discharged after clearance from cardiology. HISTORY OF PRESENT ILLNESS: This 82-year-old gentleman with a past medical history of multiple medical problems including chest pain, myocardial infarction . Cardiology recommended a stress test. The patient is not willing to stay at this time. The Cardiology recommended outpatient stress test. The patient is being discharged in stable condition with guarded prognosis. Vital signs stable. Cardiovascular: S1, S2. Abdomen is soft. Nervous system: No focal deficits. The patient is on bronchodilators, which improved the shortness of breath and the patient also had a V/Q scan, which is low probability. DISCHARGE ADVICE AND MEDICATIONS: 1. Discharge diet is cardiac diet. 2. Activity limited until followup. 3. Follow up with Dr. Fernandez in 1-2 days. 4. Follow with the [facility]pm solution architect as advised for outpatient stress. MEDICATIONS: 1. Zyloprim 100 mg. 2. Aspirin 325 mg daily. 3. Lipitor 40 mg daily. 4. Calcitriol 0.5 mg Sunday, Sunday, Sunday. 5. Plavix 75 mg. 6. Colchicine 0.6 daily. 7. Lasix 20 mg daily. 8. Zestril 10 mg p.o. b.i.d. 9. Restoril 30 mg q.h.s. 10.Albuterol 2 puffs q.i.d. and p.r.n. Follow up with Dr. Jett in 2 weeks. MMAKUAL / VENITAN: [id number] / MTDD
[2018-03-11] MEDS ORDERED: CALCITRIOL 0.25 MCG CAP PO SCH (09:00)
== END 2018-03-10 17:00 | disposition home or self-care (01) ==
LOC: EC 11:55 → 3SCARD 13:46
PROVIDERS: ADMIT Hospitalist; ATTEND Hospitalist
DX: R07.9 Chest pain, unspecified (principal); R77.8 Other specified abnormalities of plasma proteins; R06.02 Shortness of breath; N17.9 Acute kidney failure, unspecified; I12.9 Hypertensive chronic kidney disease with stage 1 through stage 4 chronic kidney disease, or unspecified chronic kidney disease; N18.3 Chronic kidney disease, stage 3 (moderate); R60.0 Localized edema; D63.8 Anemia in other chronic diseases classified elsewhere; E83.42 Hypomagnesemia; D72.819 Decreased white blood cell count, unspecified; E78.5 Hyperlipidemia, unspecified; M10.9 Gout, unspecified; Z79.02 Long term (current) use of antithrombotics/antiplatelets; Z79.82 Long term (current) use of aspirin; Z79.899 Other long term (current) drug therapy; Z91.013 Allergy to seafood; Z91.048 Other nonmedicinal substance allergy status; Z87.442 Personal history of urinary calculi; Z87.891 Personal history of nicotine dependence; Z86.73 Personal history of transient ischemic attack (TIA), and cerebral infarction without residual deficits
CPT/HCPCS: 96376; 96365; 96366; 99291; 36415; 94640 ×2; 93005; 85379; 83880; 80061; 80053; 80048; 82550 ×2; 82553 ×2; 83735 ×2; 84484 ×2; 85025 ×2; 85610; 85730 ×2; 81003; 71046; 78582; G0378 ×2; A9540; A9567; J1644 ×3; J3475

== ENCOUNTER 2020-06-17 21:48 | Emergency (ER) | payer MEDICARE ==
[2020-06-17 22:02] VITALS: RESP 19; TEMP 98.1
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
[2020-06-18 03:00] VITALS: BP 160/79; PULSE 60
== END 2020-06-18 03:00 | disposition home or self-care (01) ==
LOC: EC 21:48
DX: F03.90 Unspecified dementia, unspecified severity, without behavioral disturbance, psychotic disturbance, mood disturbance, and anxiety (principal); E78.5 Hyperlipidemia, unspecified; I10 Essential (primary) hypertension; Z79.02 Long term (current) use of antithrombotics/antiplatelets; Z79.82 Long term (current) use of aspirin
CPT/HCPCS: 82075; 99283